=== PATIENT | male | born 1980 | race Caucasian/White ===

== ENCOUNTER 2016-08-07 12:51 | Day surgery (SDC) | payer OTHER ==
[2016-08-07] MEDS ORDERED: IV START KIT ONE (13:01)
[2016-08-07] MEDS ORDERED: LACTATED RINGERS 1,000 ML ONE (13:01)
[2016-08-07] MEDS ORDERED: CEFAZOLIN SODIUM 2 GRAM PREMIX 100 ML IV ONE (13:09)
[2016-08-07] MEDS ORDERED: BUPIVACAINE 0.5% (PRES FREE) 30 ML VIAL ONE (14:33)
[2016-08-07] MEDS ORDERED: LIDOCAINE 1% (PRES FREE) 30 ML VIAL ONE (14:33)
[2016-08-07] MEDS ORDERED: CEFAZOLIN SODIUM 1,000 MG VIAL ONE (14:33)
[2016-08-07] MEDS ORDERED: SODIUM CHLORIDE 0.9% FLUSH 10 ML ONE (14:33)
[2016-08-07] MEDS ORDERED: MIDAZOLAM HCL 5 MG/5 ML VIAL ONE (15:35)
[2016-08-07] MEDS ORDERED: FENTANYL 100 MCG/2 ML VIAL ONE ×3 (15:35→17:50)
[2016-08-07] MEDS ORDERED: PROPOFOL 20 ML IV ONE ×2 (15:55)
[2016-08-07] MEDS ORDERED: SUCCINYLCHOLINE CHL 20 MG/ML DOSE ONE (15:55)
[2016-08-07] MEDS ORDERED: ONDANSETRON 4 MG/2ML 2 ML VIAL ONE (16:07)
[2016-08-07] MEDS ORDERED: DEXAMETHASONE SOD PHOS 4 MG/1 ML VIAL ONE (16:07)
[2016-08-07] MEDS ORDERED: FENTANYL 100 MCG/2 ML VIAL IV PRN (16:30)
[2016-08-07] MEDS ORDERED: ATROPINE SULFATE 0.4 MG/1 ML VIAL IV PRN (16:30)
[2016-08-07] MEDS ORDERED: PROMETHAZINE HCL 25 MG/ML VIAL IM PRN (16:30)
[2016-08-07] MEDS ORDERED: LACTATED RINGERS 1,000 ML IV SCH (16:30)
[2016-08-07] MEDS ORDERED: NALOXONE HCL 0.4 MG/ML VIAL IV PRN (16:30)
[2016-08-07] MEDS ORDERED: ONDANSETRON 4 MG/2ML 2 ML VIAL IV PRN ×2 (16:30→17:59)
[2016-08-07] MEDS ORDERED: KETOROLAC TROMETHAMINE 30 MG/ML 1 ML VIAL ONE (17:01)
[2016-08-07] MEDS ORDERED: OXYCODONE/ACETAMINOPHEN 5/325 MG TABLET PO PRN (17:59)
[2016-08-07] MEDS ORDERED: MORPHINE SULFATE 2 MG/ML SYRINGE IV PRN (17:59)
[2016-08-07] MEDS ORDERED: OXYCODONE/ACETAMINOPHEN 5/325 MG TABLET ONE (18:33)
--- NOTE | 2016-08-07 19:25 | OP ---
ARMIDA DECKER [id number] DATE OF OPERATION: August 07, 2016 PREOPERATIVE DIAGNOSIS: Right inguinal hernia. POSTOPERATIVE DIAGNOSIS: Right inguinal hernia. PROCEDURE: RIGHT INGUINAL HERNIA REPAIR WITH MESH PLUG TIMES TWO AND PATCH. SURGEON: Diego Bauer M.D. ANESTHESIA: General anesthesia by Leander Dove C.R.N.A. INDICATIONS: This is a 36-year-old male who developed a right inguinal hernia while at work who presents now for elective repair. DESCRIPTION: With informed consent he was taken to the operating room. He was laid supine on the operating room table. General anesthesia was administered. The right groin was prepped and draped in the usual fashion. Local anesthetic was administered in an oblique fashion. We made an incision that matched his left sided scar. Electrocautery was used to divide the subcutaneous fat. We dissected down to the external oblique. This was already splayed open quite a bit with some fatty material extruding from the external ring. The external oblique was opened with a knife and Metzenbaum scissors in a fiber splitting technique. The cord structures were quite fatty with a large hernia sac present. I was able to encircle the cord structures at the level of the pubic tubercle with a Otilio drain. A large indirect sac was dissected free of the cord structures. I did open the sac to help facilitate dissection. There was some fatty preperitoneal tissue extending along with the sac out into the inguinal canal. I excised most of the sac after it was dissected free to the floor. It was closed with a pursestring of #2-0 Vicryl and allowed to reduce. There was a large lipoma that I also excised at the level of the internal ring tying that off with #2-0 Vicryl. The large hernia sac had basically weakened the entire floor. I scored the floor with electrocautery to get into a preperitoneal plane. I ended up doing a pantaloon type repair using two extra large mesh plugs extending into the floor of the canal as well as out where the indirect sac was at with the inferior epigastric vessels in the crotch. The two pieces of mesh were sewn together with some Vicryl. They were secured circumferentially with #2-0 Vicryl. A flat piece of mesh was then placed across the floor of the canal. A slit was cut laterally. This was placed around the cord structures and secured with Vicryl laterally. I did put one stitch near the pubic tubercle to hold that in place. The medial aspect of the mesh did overlap the pubic tubercle and was placed up beneath the external oblique. The wound was irrigated. There was still quite a bit of fatty tissues within the cord structures, but I felt we were at risk for devascularizing the testicle if we were to excise this any further. I injected some additional local anesthetic beneath the external oblique and in the subcutaneous tissues. External oblique was reapproximated with a running #2-0 Vicryl. Pricila's fascia was reapproximated with #3-0 Vicryl. Skin was closed with a running subcuticular #4-0 Monocryl. Mastisol and SteriStrips were placed. Sterile dressing was applied. He tolerated the procedure and was taken to the recovery room in stable condition. Note was made the needle, instrument and lap counts were reported as correct at time of closure. Cc: Rossy Santos N.P.
[2016-08-07] MEDS ORDERED: KETOROLAC TROMETHAMINE 30 MG/ML 1 ML VIAL IV PRN (23:00)
== END 2016-08-07 19:36 | disposition home or self-care (01) ==
LOC: EDSEX → SDC 12:51
PROVIDERS: ATTEND Surgery
PROC: 0YU50JZ Supplement Right Inguinal Region with Synthetic Substitute, Open Approach (ICD-10-PCS; principal; 2016-08-07)
DX: K40.90 Unilateral inguinal hernia, without obstruction or gangrene, not specified as recurrent (principal); N50.3 Cyst of epididymis; Z72.0 Tobacco use